=== PATIENT | male | born 1960 | race Caucasian/White ===

== ENCOUNTER 2017-03-22 20:44 | Inpatient (IN) | payer BC, OTHER ==
[2017-03-22] MEDS ORDERED: SODIUM CHLORIDE 0.9% 1,000 ML IV STA (21:46)
[2017-03-22] MEDS ORDERED: RX INFO: IV CONTRAST WAS GIVEN 1 EACH MISC MISCELLANE PRN (21:54)
[2017-03-22 22:25] LABS: Basophils # (A) 0.1 k/uL (0-0.2); Basophils % (A) 1 %; CH 31.5; CHCM 34.9; Eosinophils % (A) 7 %; HDW 2.53; HGB 16.1 gm/dL (13.0-17.5); Luc # (Auto) 0.25; Luc % (Auto) 2; Lymphocytes # (A) 2.7 k/uL (1.0-4.8); Lymphocytes % (A) 18 %; MCH 31.2 pg (25.0-35.0); MCHC 34.3 g/dL (31.0-37.0); MCV 90.9 fL (80.0-100.0); Mean Platelet Volume 7.3; Monocytes # (A) 0.8 k/uL (0-1.0); Monocytes % (A) 5 %; Neutrophils # (A) 10.7 k/uL (1.3-7.7); Neutrophils % (A) 69 %; RBC 5.17 m/uL (4.30-5.90); RDW 14.6 % (11.5-15.5); WBC 15.6 k/uL (3.8-10.6)
[2017-03-22 22:28] LABS: Appearance,Urine Clear (Clear); Bilirubin,Urine Negative (Negative); Glucose,Urine (UA) Negative (Negative); Ketones,Urine Negative (Negative); Leukocyte Esterase,Urine Negative (Negative); Nitrite,Urine Negative (Negative); Protein,Urine Negative (Negative); Specific Gravity,Urine 1.016 (1.001-1.035); UA Billing (MACRO vs. MICRO) CHEM; Urobilinogen,Urine <2.0 mg/dL (<2.0)
[2017-03-22 22:36] LABS: INR 1.1 (<1.2); Partial Thromboplastin Time 26.1 sec (22.0-30.0); Prothrombin Time 11.2 sec (9.0-12.0)
[2017-03-22 22:41] LABS: ALT 58 U/L (21-72); AST 29 U/L (17-59); Alkaline Phosphatase 74 U/L (38-126); Amylase <30 U/L (30-110); Anion Gap 12 mmol/L; Blood Urea Nitrogen 20 mg/dL (9-20); Calcium 9.2 mg/dL (8.4-10.2); Carbon Dioxide 22 mmol/L (22-30); Chloride 105 mmol/L (98-107); Glucose 99 mg/dL (74-99); Non-African American GFR(MDRD) >60 (>60 ml/min/1.73 sqM); Sodium 139 mmol/L (137-145); Total Bilirubin 0.6 mg/dL (0.2-1.3); Total Protein 6.6 g/dL (6.3-8.2)
[2017-03-22] MEDS ORDERED: ONDANSETRON 4 MG/2 ML VIAL IVP STA (22:52)
[2017-03-22] MEDS ORDERED: HYDROmorphone 1 MG/ML 1 ML SYRINGE IVP STA (22:52)
--- NOTE | 2017-03-22 23:11 | ED ---
Abdominal Pain HPI - General Source: patient, RN notes reviewed, old records reviewed Mode of arrival: ambulatory Limitations: no limitations <Claudia Frazier - Last Filed: 03/23/17 07:04> <Devaughn Arellano - Last Filed: 03/23/17 08:02> - General Chief Complaint: Abdominal Pain Stated Complaint: Abd Pain Time Seen by Provider: 03/22/17 21:39 - History of Present Illness Initial Comments: 56-year-old male presents to emergency department with cc of RLQ abdominal pain for the past 3 days. Patient reports it started with pain mainly over the umbilicus region. Patient started to radiate towards his right lower quadrant. He reports had a mild low-grade fever. Denies any nausea or vomiting. Initially thought he was constipated and took some stool softeners. Patient reports that he then developed diarrhea afterwards. He states that has not subsided but the pain is continue. Proceeded eat dinner this evening. He denies any vomiting. Denies any urinary symptoms. Reports he said history of umbilical hernia repair at [place]. Patient denies any recent chills, shortness of breath, chest pain, back pain, vomiting, numbness or tingling, dysuria or hematuria, constipation or diarrhea, headaches or visual changes, or any other current symptoms (Claudia Frazier) - Related Data Home Medications Medication Instructions Recorded Confirmed Ibuprofen [Motrin] 400 mg PO Q6HR PRN 08/15/15 03/22/17 Allergies Allergy/AdvReac Type Severity Reaction Status Date / Time No Known Allergies Allergy Verified 03/22/17 22:17 Review of Systems ROS Other: All systems not noted in ROS Statement are negative. <Claudia Frazier - Last Filed: 03/23/17 07:04> ROS Other: All systems not noted in ROS Statement are negative. <Devaughn Arellano - Last Filed: 03/23/17 08:02> ROS Statement: Those systems with pertinent positive or pertinent negative responses have been documented in the HPI. Past Medical History Past Medical History: No Reported History Additional Past Medical History / Comment(s): Neck pain History of Any Multi-Drug Resistant Organisms: None Reported Past Surgical History: Hernia Repair Past Psychological History: No Psychological Hx Reported Smoking Status: Former smoker Past Alcohol Use History: None Reported Past Drug Use History: None Reported <Claudia Frazier - Last Filed: 03/23/17 07:04> General Exam Limitations: no limitations General appearance: alert, in no apparent distress Head exam: Present: atraumatic, normocephalic, normal inspection Eye exam: Present: normal appearance, PERRL, EOMI. Absent: scleral icterus, conjunctival injection, periorbital swelling ENT exam: Present: normal exam, mucous membranes moist Neck exam: Present: normal inspection. Absent: tenderness, meningismus, lymphadenopathy Respiratory exam: Present: normal lung sounds bilaterally. Absent: respiratory distress, wheezes, rales, rhonchi, stridor Cardiovascular Exam: Present: regular rate, normal rhythm, normal heart sounds. Absent: systolic murmur, diastolic murmur, rubs, gallop, clicks GI/Abdominal exam: Present: soft, tenderness (RLQ tenderness), normal bowel sounds. Absent: distended, guarding, rebound, rigid Extremities exam: Present: normal inspection, full ROM, normal capillary refill. Absent: tenderness, pedal edema, joint swelling, calf tenderness Back exam: Present: normal inspection Neurological exam: Present: alert, oriented X3, CN II-XII intact Psychiatric exam: Present: normal affect, normal mood Skin exam: Present: warm, dry, intact, normal color. Absent: rash <Claudia Frazier - Last Filed: 03/23/17 07:04> <Devaughn Arellano - Last Filed: 03/23/17 08:02> - General Exam Comments Initial Comments: Ill-appearing 56-year-old male. No acute distress. (Claudia Frazier) Medical Decision Making - Lab Data Result diagrams: 03/22/17 22:14 03/22/17 22:14 - Radiology Data Radiology results: report reviewed <Claudia Frazier - Last Filed: 03/23/17 07:04> - Lab Data Result diagrams: 03/22/17 22:14 03/22/17 22:14 <Devaughn Arellano - Last Filed: 03/23/17 08:02> - Medical Decision Making 56-year-old male presents to emergency department with cc of RLQ abdominal pain for the past 3 days. Patient reports it started with pain mainly over the umbilicus region. Patient started to radiate towards his right lower quadrant. He reports had a mild low-grade fever. I was called by radiologist inform him that his CAT scan did show positive for appendicitis. Patient's lab work was reviewed and shows evidence of leukocytosis of 15.6. Discussed this case with Dr. Mancera who will discuss that with . PAtient has been started on Zosyn and given pain medication. Tylenol was given for mild fever. Patient agrees to admission. Probably surgery in AM. (Claudia Frazier) I saw this patient in conjunction with the physician family readiness support assistant. I performed independent history and physical exam. Agree with case management. (Devaughn Arellano) - Lab Data Lab Results 03/22/17 03/22/17 03/22/17 Range/Units 22:14 22:14 22:14 WBC 15.6 H (3.8-10.6) k/uL RBC 5.17 (4.30-5.90) m/uL Hgb 16.1 (13.0-17.5) gm/dL Hct 47.0 (39.0-53.0) % MCV 90.9 (80.0-100.0) fL MCH 31.2 (25.0-35.0) pg MCHC 34.3 (31.0-37.0) g/dL RDW 14.6 (11.5-15.5) % Plt Count 215 (150-450) k/uL Neutrophils % 69 % Lymphocytes % 18 % Monocytes % 5 % Eosinophils % 7 % Basophils % 1 % Neutrophils # 10.7 H (1.3-7.7) k/uL Lymphocytes # 2.7 (1.0-4.8) k/uL Monocytes # 0.8 (0-1.0) k/uL Eosinophils # 1.0 H (0-0.7) k/uL Basophils # 0.1 (0-0.2) k/uL PT (9.0-12.0) sec INR (<1.2) APTT (22.0-30.0) sec Sodium 139 (137-145) mmol/L Potassium 4.0 (3.5-5.1) mmol/L Chloride 105 (98-107) mmol/L Carbon Dioxide 22 (22-30) mmol/L Anion Gap 12 mmol/L BUN 20 (9-20) mg/dL Creatinine 0.80 (0.66-1.25) mg/dL Est GFR (MDRD) Af Amer >60 (>60 ml/min/1.73 sqM) Est GFR (MDRD) Non-Af >60 (>60 ml/min/1.73 sqM) Glucose 99 (74-99) mg/dL Plasma Lactic Acid Hernandez (0.7-2.0) mmol/L Calcium 9.2 (8.4-10.2) mg/dL Total Bilirubin 0.6 (0.2-1.3) mg/dL AST 29 (17-59) U/L ALT 58 (21-72) U/L Alkaline Phosphatase 74 (38-126) U/L Total Protein 6.6 (6.3-8.2) g/dL Albumin 4.0 (3.5-5.0) g/dL Amylase <30 L (30-110) U/L Lipase 100 (23-300) U/L Urine Color Yellow Urine Appearance Clear (Clear) Urine pH 5.0 (5.0-8.0) Ur Specific Harrold 1.016 (1.001-1.035) Urine Protein Negative (Negative) Urine Glucose (UA) Negative (Negative) Urine Ketones Negative (Negative) Urine Blood Negative (Negative) Urine Nitrite Negative (Negative) Urine Bilirubin Negative (Negative) Urine Urobilinogen <2.0 (<2.0) mg/dL Ur Leukocyte Esterase Negative (Negative) 03/22/17 03/22/17 Range/Units 22:14 22:14 WBC (3.8-10.6) k/uL RBC (4.30-5.90) m/uL Hgb (13.0-17.5) gm/dL Hct (39.0-53.0) % MCV (80.0-100.0) fL MCH (25.0-35.0) pg MCHC (31.0-37.0) g/dL RDW (11.5-15.5) % Plt Count (150-450) k/uL Neutrophils % % Lymphocytes % % Monocytes % % Eosinophils % % Basophils % % Neutrophils # (1.3-7.7) k/uL Lymphocytes # (1.0-4.8) k/uL Monocytes # (0-1.0) k/uL Eosinophils # (0-0.7) k/uL Basophils # (0-0.2) k/uL PT 11.2 (9.0-12.0) sec INR 1.1 (<1.2) APTT 26.1 (22.0-30.0) sec Sodium (137-145) mmol/L Potassium (3.5-5.1) mmol/L Chloride (98-107) mmol/L Carbon Dioxide (22-30) mmol/L Anion Gap mmol/L BUN (9-20) mg/dL Creatinine (0.66-1.25) mg/dL Est GFR (MDRD) Af Amer (>60 ml/min/1.73 sqM) Est GFR (MDRD) Non-Af (>60 ml/min/1.73 sqM) Glucose (74-99) mg/dL Plasma Lactic Acid Hernandez 0.8 (0.7-2.0) mmol/L Calcium (8.4-10.2) mg/dL Total Bilirubin (0.2-1.3) mg/dL AST (17-59) U/L ALT (21-72) U/L Alkaline Phosphatase (38-126) U/L Total Protein (6.3-8.2) g/dL Albumin (3.5-5.0) g/dL Amylase (30-110) U/L Lipase (23-300) U/L Urine Color Urine Appearance (Clear) Urine pH (5.0-8.0) Ur Specific Harrold (1.001-1.035) Urine Protein (Negative) Urine Glucose (UA) (Negative) Urine Ketones (Negative) Urine Blood (Negative) Urine Nitrite (Negative) Urine Bilirubin (Negative) Urine Urobilinogen (<2.0) mg/dL Ur Leukocyte Esterase (Negative) - Radiology Data CT abdomen and pelvis shows acute appendicitis. Mild steatohepatitis. ( Claudia Frazier) Disposition Time of Disposition: 23:27 <Claudia Frazier - Last Filed: 03/23/17 07:04> <Devaughn Arellano - Last Filed: 03/23/17 08:02> Clinical Impression: Appendicitis Disposition: ADMITTED IP TO THIS [facility] Condition: Stable
[2017-03-22] MEDS ORDERED: ACETAMINOPHEN TAB 500 MG TAB PO STA (23:22)
--- NOTE | 2017-03-22 23:22 | CT ---
Exam: CT ABDOMEN + PELVIS With Contrast History: Right lower quadrant pain. Comparison: None provided. Technique: Continuous axial images of the abdomen and pelvis are obtained after administration of intravenous contrast. Coronal and sagittal reformatting was provided. Findings: Limited by lack of simultaneous use of enteric contrast, especially at the cecum. The appendix appears dilated to approximately 1.2 cm in caliber proximally. It is fluid-filled. There is a moderate amount of stranding/fluid in the periappendiceal/right paracolic gutter region. The findings suggest appendicitis. There is borderline mesenteric lymphadenopathy, likely reactive. Borderline hepatic steatosis. Gallbladder is contracted. The pancreas, adrenal glands, kidneys and spleen show no substantial abnormality. No dilated loop of bowel. A short segment of small bowel herniates through the left inguinal canal. No acute aortic abnormality. No aggressive appearing osseous process. Impression: 1. Appendicitis. 2. Left inguinal small bowel hernia without small bowel dilatation. 3. Mild hepatic steatosis. DLP = 1551 mGycm One or more of the following dose reduction techniques were used: automated exposure control, adjustment of the mA and/or kV according to patient size, use of iterative reconstruction technique. [employer] 03/22/17 23:14 Call Doctor Regarding Appendicitis, called ELDER Frazier on 03/22 23:13 (-04:00)
[2017-03-22] MEDS ORDERED: ONDANSETRON 4 MG/2 ML VIAL IVP PRN (23:25)
[2017-03-22] MEDS ORDERED: LORazepam 2 MG/ML SYRINGE IV PRN (23:25)
[2017-03-22] MEDS ORDERED: NALOXONE 0.4 MG/ML 1 ML VIAL IV PRN ×2 (23:25→23:57)
[2017-03-22] MEDS ORDERED: PIPERACILLIN-TAZOBACTAM 3.375 GM in DEXTROSE/WATER 1 50ML.BAG IVPB STA (23:56)
[2017-03-22] MEDS: SODIUM CHLORIDE 0.9% 1,000 ML IV SCH (23:58)
[2017-03-23] MEDS: HYDROmorphone 1 MG/ML 1 ML SYRINGE IV PRN ×2 (04:23→14:15)
--- NOTE | 2017-03-23 07:21 | P.GSHP ---
History of Present Illness H&P Date: 03/23/17 Chief Complaint: Right lower quadrant abdominal pain The patient is a 56-year-old white male who developed the mid to lower abdominal pain about 3/2 days ago. He thought he was constipated stool softener. Had some loose bowel movements. The pain persisted and progressively worsened. No definite nausea or vomiting. He presented to the emergency room. Was found to have evidence of acute appendicitis by computed tomography scan would tenderness in the lower abdomen. No definite the peritoneal signs. Also had leukocytosis. No past history of similar pain. No urinary symptoms. Past history. Otherwise healthy. Chronic neck pain for which he takes Motrin regularly. ALLERGIES. None known. Social history. Quit smoking several years ago. Rarely drinks alcohol. Works in construction. Systems review. As above. No chest pain cough or respiratory problems or cardiac. No TRANSPORTATION ASSISTANT problems. Some neck pain. No urinary symptoms. On examination the patient is well-built well-nourished weighs about 85 kg. In no acute distress resting comfortably. Hydration is satisfactory temperature is normal vitals are normal. Head and neck are normal with full motion. Neck is supple. Heart regular rhythm. Lungs are clear. Abdomen soft with the moderate tenderness in the right lower quadrant with some voluntary guarding but no rebound or rigidity. Localized to the right lower quadrant. Has a scar in the right groin from previous right inguinal hernia repair. Has a left inguinal hernia easily reducible. Extremities normal. TRANSPORTATION ASSISTANT intact. Computed tomography scan consistent with acute appendicitis. No free air. Left inguinal hernia with the some small bowel nonobstructed. WBCs elevated to 15,600. Impression. Acute appendicitis. Left inguinal hernia. Recommendation. Recommend laparoscopic appendectomy possible open. In the meantime continue with IV antibiotics analgesia. I explained to proceed to him and potential complication particular bleeding infection surrounding injury pain etc. increase her risk for open surgery in view of the more than 3 day history of his symptoms. He understands and agrees to proceed. Past Medical History Past Medical History: No Reported History Additional Past Medical History / Comment(s): Neck pain History of Any Multi-Drug Resistant Organisms: None Reported Past Surgical History: Hernia Repair Past Anesthesia/Blood Transfusion Reactions: No Reported Reaction Past Psychological History: No Psychological Hx Reported Smoking Status: Former smoker Past Alcohol Use History: None Reported Past Drug Use History: None Reported Medications and Allergies Home Medications Medication Instructions Recorded Confirmed Type Ibuprofen [Motrin] 400 mg PO Q6HR PRN 08/15/15 03/22/17 History Allergies Allergy/AdvReac Type Severity Reaction Status Date / Time No Known Allergies Allergy Verified 03/22/17 22:17 Surgical - Exam Vital Signs Temp Pulse Resp BP Pulse Ox 99.7 F H 75 18 125/78 95 03/22/17 20:59 03/22/17 20:59 03/22/17 20:59 03/22/17 20:59 03/22/17 20:59 Results - Labs 03/22/17 22:14 03/22/17 22:14 Abnormal Lab Results - Last 24 Hours (Table) 03/22/17 03/22/17 Range/Units 22:14 22:14 WBC 15.6 H (3.8-10.6) k/uL Neutrophils # 10.7 H (1.3-7.7) k/uL Eosinophils # 1.0 H (0-0.7) k/uL Amylase <30 L (30-110) U/L Diabetes panel 03/22/17 Range/Units 22:14 Sodium 139 (137-145) mmol/L Potassium 4.0 (3.5-5.1) mmol/L Chloride 105 (98-107) mmol/L Carbon Dioxide 22 (22-30) mmol/L BUN 20 (9-20) mg/dL Creatinine 0.80 (0.66-1.25) mg/dL Glucose 99 (74-99) mg/dL Calcium 9.2 (8.4-10.2) mg/dL AST 29 (17-59) U/L ALT 58 (21-72) U/L Alkaline Phosphatase 74 (38-126) U/L Total Protein 6.6 (6.3-8.2) g/dL Albumin 4.0 (3.5-5.0) g/dL Calcium panel 03/22/17 Range/Units 22:14 Calcium 9.2 (8.4-10.2) mg/dL Albumin 4.0 (3.5-5.0) g/dL Pituitary panel 03/22/17 Range/Units 22:14 Sodium 139 (137-145) mmol/L Potassium 4.0 (3.5-5.1) mmol/L Chloride 105 (98-107) mmol/L Carbon Dioxide 22 (22-30) mmol/L BUN 20 (9-20) mg/dL Creatinine 0.80 (0.66-1.25) mg/dL Glucose 99 (74-99) mg/dL Calcium 9.2 (8.4-10.2) mg/dL Adrenal panel 03/22/17 Range/Units 22:14 Sodium 139 (137-145) mmol/L Potassium 4.0 (3.5-5.1) mmol/L Chloride 105 (98-107) mmol/L Carbon Dioxide 22 (22-30) mmol/L BUN 20 (9-20) mg/dL Creatinine 0.80 (0.66-1.25) mg/dL Glucose 99 (74-99) mg/dL Calcium 9.2 (8.4-10.2) mg/dL Total Bilirubin 0.6 (0.2-1.3) mg/dL AST 29 (17-59) U/L ALT 58 (21-72) U/L Alkaline Phosphatase 74 (38-126) U/L Total Protein 6.6 (6.3-8.2) g/dL Albumin 4.0 (3.5-5.0) g/dL
[2017-03-23] MEDS: HEPARIN SODIUM,PORCINE 5,000 UNIT/ML 1 ML VIAL SQ SCH ×2 (08:15→20:06)
[2017-03-23] MEDS: SODIUM CHLORIDE 0.9% 1,000 ML IV SCH ×3 (08:15→23:20)
[2017-03-23 08:39] LABS: Basophils # (A) 0.1 k/uL (0-0.2); Basophils % (A) 1 %; CH 31.5; CHCM 33.6; Eosinophils # (A) 0.7 k/uL (0-0.7); Eosinophils % (A) 5 %; HCT 45.2 % (39.0-53.0); HDW 2.52; HGB 14.9 gm/dL (13.0-17.5); Luc # (Auto) 0.18; Luc % (Auto) 1; Lymphocytes # (A) 1.5 k/uL (1.0-4.8); Lymphocytes % (A) 11 %; MCH 31.1 pg (25.0-35.0); MCHC 33.1 g/dL (31.0-37.0); MCV 94.2 fL (80.0-100.0); Mean Platelet Volume 7.3; Monocytes # (A) 0.7 k/uL (0-1.0); Monocytes % (A) 5 %; Neutrophils # (A) 11.4 k/uL (1.3-7.7); Neutrophils % (A) 79 %; RDW 14.7 % (11.5-15.5); WBC 14.5 k/uL (3.8-10.6); WBC (Perox) 14.19
[2017-03-23] MEDS ORDERED: IV FLUID CONTINUATION 800 ML IV ONE (10:37)
[2017-03-23] MEDS ORDERED: metroNIDAZOLE-NS PMX 500 MG in SALINE 1 100ML.BAG IVPB STA (11:47)
[2017-03-23] MEDS ORDERED: LIDOCAINE 1% INJ 10MG/ML (20 ML MDV) ONE (11:50)
[2017-03-23] MEDS ORDERED: SUCCINYLCHOLINE CHLORIDE 100 MG/5 ML SYR IV ONE (11:50)
[2017-03-23] MEDS ORDERED: PROPOFOL 10 MG/ML 20 ML VIAL IV ONE (11:50)
[2017-03-23] MEDS ORDERED: NEOSTIGMINE 1 MG/ML 10 ML VIAL ONE (11:50)
[2017-03-23] MEDS ORDERED: HYDROmorphone (PF) 1 MG/ML ONE (11:50)
[2017-03-23] MEDS ORDERED: MIDAZOLAM 2 MG/2 ML VIAL ONE (11:50)
[2017-03-23] MEDS ORDERED: GLYCOPYRROLATE 0.2 MG/ML 2 ML VIAL ONE (11:50)
[2017-03-23] MEDS ORDERED: ROCURONIUM BROMIDE 10 MG/ML 10 ML VIAL IV ONE (11:50)
[2017-03-23] MEDS ORDERED: fentaNYL (PF) 50 MCG/ML 2 ML AMP ONE (11:50)
[2017-03-23] MEDS ORDERED: KETOROLAC 30 MG/ML 1 ML VIAL ONE (11:50)
[2017-03-23] MEDS ORDERED: SODIUM CHLORIDE 0.9% 50 ML with ceFAZolin 2,000 MG IV ONE ×2 (11:58)
[2017-03-23] MEDS ORDERED: BUPIVACAINE (PF) 0.5% 30 ML VIAL SQ ONE ×2 (12:08)
[2017-03-23] MEDS ORDERED: LACTATED RINGERS 1,000 ML IV ONE (12:51)
--- NOTE | 2017-03-23 13:06 | P.OP ---
Date of Procedure: 03/23/17 Preoperative Diagnosis: Severe acute appendicitis Postoperative Diagnosis: Severe acute appendicitis with early gangrenous changes. Procedure(s) Performed: Laparoscopic appendectomy Implants: Anesthesia: RENAE Surgeon: Zeeshan Hatfield Estimated Blood Loss (ml): 20 Pathology: other (Appendix) Condition: stable Disposition: PACU Indications for Procedure: Over 3 days history of lower abdominal pain localizing to the right lower quadrant with CT evidence of acute acute appendicitis and leukocytosis and marked tenderness in the right lower quadrant. Laparoscopic appendectomy possible open was recommended and informed consent was obtained the procedure have been explained to the patient including potential complication particular bleeding infection surrounding injury pain at increased risk for complications in view of the extended duration of his symptoms. Patient understood and agree to proceed. Operative Findings: Severe acute appendicitis with the early gangrenous changes. Description of Procedure: After induction of general endotracheal anesthesia the abdominal wall was prepped with Betadine and draped. Local anesthetic Marcaine and the 0.5% was infiltrated into the skin and subcutaneous tissue just below the umbilicus where a small transverse incision was made. The fascia was exposed infiltrated with the Marcaine and retracted and a Veress needle inserted under direct vision with a satisfactory saline drop test. The peritoneal cavity was then inflated with carbon dioxide to pressure approximately 15 mmHg. The needle was replaced with a 12 mm trocar and the laparoscope inserted. Of the 5 mm trocar was placed suprapubically and another 5 mm trocar in the left lower quadrant under direct vision. Visual exploration confirmed acute appendicitis with the severe inflammatory changes fibrinous exudate with some seropurulent the fluid in the pelvis. The appendix was adherent to the anterior abdominal wall and had to be carefully dissected away from this as well as from the sigmoid colon. There was early gangrenous changes in the midportion of the appendix. They appeared to be impending perforation. The appendix was gently grasped and retracted window created in the mesoappendix adjacent to the cecum and the appendix was then stapled and divided with the Endo JIM stapler. The mesoappendix was then similarly stapled and divided with 2 passes of the Endo JIM stapler. The appendix were then removed in an Endo Catch bag. It the left into [address] it in the bag. Both removed intact. The pelvis and right gutter were thoroughly irrigated hemostasis was good and the field was dry. The fascial incision at the umbilicus was closed with the Estrada Torres needle with the 0 Vicryl. Skin incisions were then all closed after all trochars were removed under direct vision and CO2 evacuated with interrupted 0 Vicryl sutures subcuticular and Steri-Strips. Dressings were applied all counts were correct blood loss was about 20 MLS.
[2017-03-23] MEDS: metroNIDAZOLE-NS PMX 500 MG in SALINE 1 100ML.BAG IVPB SCH ×2 (14:15→23:16)
[2017-03-23] MEDS: PIPERACILLIN-TAZOBACTAM 3.375 GM in DEXTROSE/WATER 1 50ML.BAG IVPB SCH (15:49)
[2017-03-23] MEDS: ACETAMINOPHEN TAB 325 MG TAB PO PRN (20:05)
[2017-03-24] MEDS: PIPERACILLIN-TAZOBACTAM 3.375 GM in DEXTROSE/WATER 1 50ML.BAG IVPB SCH ×3 (00:36→16:50)
[2017-03-24] MEDS: HYDROmorphone 1 MG/ML 1 ML SYRINGE IV PRN (00:41)
--- NOTE | 2017-03-24 08:17 | P.PN ---
Progress Note - Text The patient had the laparoscopic appendectomy for severe gangrenous appendicitis yesterday. Coming along fairly well. No nausea or vomiting. Appetite is diminished as expected. He is tolerating clear liquids. On examination has a T-max of 99 3. Awake alert in no distress. Abdomen is mildly distended stool a fair amount of tenderness in the right lower quadrant as expected. Trocar sites are fine. Impression stable postop of laparoscopic appendectomy for severe acute the early gangrenous appendicitis. Meggan recommendation advance his diet the. Encourage more ambulation. Continue IV antibiotics for another day or so and probably discharge tomorrow.
[2017-03-24] MEDS: HEPARIN SODIUM,PORCINE 5,000 UNIT/ML 1 ML VIAL SQ SCH ×2 (08:47→20:09)
[2017-03-24] MEDS: HYDROcodone/APAP 5-325MG 1 EACH TAB PO PRN ×2 (08:49→13:29)
[2017-03-24] MEDS: metroNIDAZOLE-NS PMX 500 MG in SALINE 1 100ML.BAG IVPB SCH ×3 (09:01→23:39)
[2017-03-24] MEDS: SODIUM CHLORIDE 0.9% 1,000 ML IV SCH (10:21)
--- NOTE | 2017-03-24 14:25 | P.CONS ---
History of Present Illness - Reason for Consult Consult date: 03/24/17 management of low oxygen - History of Present Illness this is a is a 56-year-old white male who developed the mid to lower abdominal 3 days ago. He thought he was constipated and tried stool softeners which illicited some loose bowel movements. The pain persisted and progressively worsened. No definite nausea or vomiting. He presented to the emergency room and Was found to have evidence of acute appendicitis by CT. Dr Coelho had seen and admitted him. After 1 day, performed LAp Appy. Gangrenoous appendicitis was found. Since his admit, his pulse Ox has been low at night. He has h/o COPD, and was worked up with a sleep stuy, but it was negative for LACI. he is confortable with controlled pain, passing flatus, tolerating regualr diet. Review of Systems All systems: negative Past Medical History Past Medical History: No Reported History Additional Past Medical History / Comment(s): Neck pain History of Any Multi-Drug Resistant Organisms: None Reported Past Surgical History: Hernia Repair Past Anesthesia/Blood Transfusion Reactions: No Reported Reaction Past Psychological History: No Psychological Hx Reported, Anxiety Smoking Status: Former smoker Past Alcohol Use History: None Reported Past Drug Use History: None Reported Medications and Allergies Home Medications Medication Instructions Recorded Confirmed Type Ibuprofen [Motrin] 400 mg PO Q6HR PRN 08/15/15 03/22/17 History Allergies Allergy/AdvReac Type Severity Reaction Status Date / Time No Known Allergies Allergy Verified 03/22/17 22:17 Physical Exam Vitals: Vital Signs Temp Pulse Resp BP Pulse Ox 03/24/17 07:34 97.1 F L 68 22 111/70 94 L 03/23/17 23:00 99.4 F 83 18 114/68 91 L 03/23/17 16:00 75 20 03/23/17 14:40 100/58 92 L 03/23/17 14:35 99.1 F 75 20 91/47 86 L Intake and Output 03/23/17 03/24/17 03/24/17 22:59 06:59 14:59 Intake Total 0 400 Balance 0 400 Intake: Oral 0 400 Other: Voiding Method Toilet Toilet # Voids 2 2 Weight 85 kg - Constitutional General appearance: average body habitus - EENT Eyes: EOMI, PERRLA ENT: normal oropharynx - Neck Neck: no lymphadenopathy, no thyromegaly - Respiratory Respiratory: bilateral: diminished (minimally) - Cardiovascular Rhythm: regular Heart sounds: normal: S1, S2 Abnormal Heart Sounds: no systolic murmur - Gastrointestinal General gastrointestinal: normal bowel sounds, no organomegaly, no splenomegaly Localized gastrointestinal: tender: RLQ (minimal palpation due to surgery) - Musculoskeletal Musculoskeletal: gait normal - Psychiatric Psychiatric: A&O x's 3 Results CBC & Chem 7: 03/23/17 08:21 03/22/17 22:14 Assessment and Plan Plan: appendicitis s/p LAp Appy POD 1: with the evidence of gangrene, he is continuie on abx Hypoxia: continue O2 as needed, increase ambulation, obtain CXR, h/o tobaccoism: as above I will review his xray and Dr Flaherty will reevaluate in the next 24 hrs due to my upcoming vacation. he can f/u in office in 2-3 weeks if he is discharged as planned
[2017-03-24] MEDS: ACETAMINOPHEN TAB 325 MG TAB PO PRN (15:30)
[2017-03-24 15:41] VITALS: RESP 18
[2017-03-25] MEDS: PIPERACILLIN-TAZOBACTAM 3.375 GM in DEXTROSE/WATER 1 50ML.BAG IVPB SCH ×2 (01:01→07:28)
[2017-03-25] MEDS: HYDROmorphone 1 MG/ML 1 ML SYRINGE IV PRN ×2 (01:01→07:28)
[2017-03-25] MEDS: HEPARIN SODIUM,PORCINE 5,000 UNIT/ML 1 ML VIAL SQ SCH (07:28)
[2017-03-25 07:31] VITALS: BP 137/80; PULSE 81; TEMP 98.3
[2017-03-25 07:57] LABS: Basophils # (A) 0.1 k/uL (0-0.2); Basophils % (A) 1 %; CHCM 33.7; Eosinophils # (A) 0.6 k/uL (0-0.7); Eosinophils % (A) 6 %; HCT 42.3 % (39.0-53.0); HDW 2.66; HGB 14.1 gm/dL (13.0-17.5); Luc # (Auto) 0.15; Luc % (Auto) 1; Lymphocytes # (A) 1.5 k/uL (1.0-4.8); Lymphocytes % (A) 14 %; MCH 30.9 pg (25.0-35.0); MCHC 33.4 g/dL (31.0-37.0); MCV 92.3 fL (80.0-100.0); Mean Platelet Volume 7.6; Monocytes # (A) 0.4 k/uL (0-1.0); Monocytes % (A) 4 %; Neutrophils % (A) 75 %; RBC 4.58 m/uL (4.30-5.90); RDW 14.1 % (11.5-15.5); WBC 10.7 k/uL (3.8-10.6); WBC (Perox) 11.44
[2017-03-25] MEDS ORDERED: metroNIDAZOLE 500 MG TAB PO SCH (08:00)
[2017-03-25 08:12] LABS: Anion Gap 9 mmol/L; Blood Urea Nitrogen 10 mg/dL (9-20); Calcium 8.4 mg/dL (8.4-10.2); Carbon Dioxide 25 mmol/L (22-30); Chloride 106 mmol/L (98-107); Glucose 90 mg/dL (74-99); Non-African American GFR(MDRD) >60 (>60 ml/min/1.73 sqM); Potassium 3.7 mmol/L (3.5-5.1); Sodium 140 mmol/L (137-145)
--- NOTE | 2017-03-25 08:27 | P.PN ---
Progress Note - Text The patient is due to post laparoscopic appendectomy for acute the suppurative appendicitis with the early gangrenous changes in the midportion. Tolerating liquids. The doesn't have too much of an appetite as expected. Passing some flatus but no bowel movement. On examination his temperature is normal. Vitals are good. Abdomen is soft with minimal distention with usual postoperative tenderness in the right lower quadrant no guarding or rebound. Trocar sites fine. Impression. Stable postoperative course. Recommendation patient can be discharged home on by mouth antibiotics and analgesia. Encouraged to drink lots of fluids. Colace 1 daily. Given a prescription for local 5/325 one every 4-6 hours when necessary for pain and Augmentin 875 mg 1 by mouth twice a day. No heavy lifting or straining for a week. May shower. Return appointment to the office in about a week. Disposition home.
--- NOTE | 2017-03-25 08:58 | XR ---
EXAMINATION TYPE: XR chest 2V DATE OF EXAM: 03/25/2017 COMPARISON: 08/15/2015 TECHNIQUE: PA and lateral views submitted. HISTORY: Hypoxia FINDINGS: Subsegmental changes at both lung bases. No overt failure or pneumothorax. Biapical pleural thickenin g arthropathy of the shoulders. Hypertrophic and degenerative change of the spine. IMPRESSION: 1. Basilar linear changes are most typical of atelectasis correlate clinically to exclude early infil trate..
== END 2017-03-25 11:43 | disposition home or self-care (01) | DRG 343 ==
LOC: EC 20:44 → 4MS4W 03-23 00:26
PROVIDERS: ADMIT Surgery; ATTEND Surgery
PROC: 0DTJ4ZZ Resection of Appendix, Percutaneous Endoscopic Approach (ICD-10-PCS; principal; 2017-03-23 07:30)
DX: K35.80 Unspecified acute appendicitis (principal); J44.9 Chronic obstructive pulmonary disease, unspecified; G89.29 Other chronic pain; K40.90 Unilateral inguinal hernia, without obstruction or gangrene, not specified as recurrent; Z79.1 Long term (current) use of non-steroidal anti-inflammatories (NSAID); Z87.891 Personal history of nicotine dependence
CPT/HCPCS: 36415; 71020; 74177; 80048; 80053; 81003; 82150; 83605; 83690; 85025; 85610; 85730; 88304

== ENCOUNTER 2021-08-16 17:28 | Emergency (ER) | payer OTHER ==
[2021-08-16] MEDS ORDERED: IBUPROFEN 400 MG TAB PO STA (19:53)
[2021-08-16] MEDS ORDERED: ACETAMINOPHEN TAB 325 MG TAB PO STA (19:53)
--- NOTE | 2021-08-16 20:03 | ED ---
General Adult HPI - General Chief complaint: Upper Respiratory Infection Stated complaint: Cough, fever Time Seen by Provider: 08/16/21 19:34 Source: patient, RN notes reviewed Mode of arrival: ambulatory Limitations: no limitations - History of Present Illness Initial comments: 61-year-old male presents to the emergency Department with complaints of fever and cough since Wednesday. States he has been attempting to treat his symptoms with OTC medications. Also complains of decreased appetite. Reports concern for possible Covid. States he is not vaccinated. Patient denies headache, chest pain, difficulty breathing, abdominal pain, nausea, vomiting, diarrhea, or dysuria. - Related Data Home Medications Medication Instructions Recorded Confirmed Ibuprofen [Motrin] 400 mg PO Q6HR PRN 08/15/15 03/22/17 Previous Rx's Medication Instructions Recorded Amoxic-Pot Clav 875-125Mg 1 tab PO Q12HR #10 tablet 03/25/17 [Augmentin 875-125] HYDROcodone/APAP 5-325MG [[place] 1 tab PO Q4HR PRN #25 tab 03/25/17 5-325] Allergies Allergy/AdvReac Type Severity Reaction Status Date / Time No Known Allergies Allergy Verified 03/22/17 22:17 Review of Systems ROS Statement: Those systems with pertinent positive or pertinent negative responses have been documented in the HPI. ROS Other: All systems not noted in ROS Statement are negative. Past Medical History Past Medical History: No Reported History Additional Past Medical History / Comment(s): Neck pain History of Any Multi-Drug Resistant Organisms: None Reported Past Surgical History: Hernia Repair Past Anesthesia/Blood Transfusion Reactions: No Reported Reaction Past Psychological History: No Psychological Hx Reported, Anxiety Smoking Status: Never smoker Past Alcohol Use History: None Reported Past Drug Use History: None Reported General Exam Limitations: no limitations General appearance: alert, in no apparent distress, other (Developed, well- nourished male in no acute distress. Initial temperature 100.1, pulse 79, respirations 20, blood pressure 163/89, pulse ox 92% on room air.) ENT exam: Present: normal exam, normal oropharynx, mucous membranes moist Respiratory exam: Present: normal lung sounds bilaterally. Absent: respiratory distress, wheezes, rales, rhonchi, stridor Cardiovascular Exam: Present: regular rate, normal rhythm, normal heart sounds. Absent: systolic murmur, diastolic murmur, rubs, gallop, clicks GI/Abdominal exam: Present: soft, normal bowel sounds. Absent: distended, tenderness, guarding, rebound, rigid Neurological exam: Present: alert, oriented X3, CN II-XII intact Psychiatric exam: Present: normal affect, normal mood Skin exam: Present: warm, dry, intact, normal color. Absent: rash Course Vital Signs 08/16/21 08/16/21 08/16/21 17:55 19:32 20:52 Temperature 100.1 F H 100.9 F H 100.7 F H Pulse Rate 79 80 78 Respiratory 20 18 16 Rate Blood Pressure 163/89 128/77 O2 Sat by Pulse 92 L 95 92 L Oximetry 08/16/21 21:36 Temperature 98.6 F Pulse Rate 72 Respiratory 16 Rate Blood Pressure 120/76 O2 Sat by Pulse 92 L Oximetry - Reevaluation(s) Reevaluation #1: 08/16/21 20:02 Discussed option of monoclonal antibody infusion with patient. Reviewed risks and benefits. Patient is agreeable and wishes to proceed. Medical Decision Making - Medical Decision Making This is a 61-year-old male with no significant past medical history who presents to the emergency department for evaluation. Upon exam, patient is well- appearing with no increased work of breathing. He does have a persistent dry cough. Patient is tolerating oral intake without difficulty. Patient is febrile, though not tachypneic nor tachycardic. His SpO2 is 92-95% on room air. Patient did test positive for COVID-19. He is unvaccinated. Discussed the option of a monoclonal antibody infusion, he is agreeable to this. Infusion was tolerated without any adverse side effects. Patient will be discharged home to follow up with his primary care provider for a recheck. Instructed to alternate Tylenol and Motrin for fever control. Return parameters were discussed in detail. Patient verbalizes understanding and agrees with this plan. This patient's care was discussed with my attending Dr. Arellano. - Lab Data Lab Results 08/16/21 Range/Units 17:57 Coronavirus (PCR) Detected A (Not Detectd) Disposition Clinical Impression: COVID-19, Fever Disposition: HOME SELF-CARE Condition: Stable Instructions (If sedation given, give patient instructions): Coronavirus Disease 2019 (COVID-19), Fever in Adults (ED) Additional Instructions: Alternate Tylenol and Motrin for fever control. Rest and increase fluids. Continue your quarantine. Call your primary care provider for a recheck. Return to the emergency department with any new, worsening, or concerning symptoms. Is patient prescribed a controlled substance at d/c from ED?: No Referrals: None,Stated [Primary Care Provider] - 1-2 days Time of Disposition: 21:50
[2021-08-16] MEDS ORDERED: BAMLANIVIMAB (EUA) 700 MG, ETESEVIMAB (EUA) 1,400 MG in SODIUM CHLORIDE 0.9% 50 ML IVPB ONE (20:15)
[2021-08-16] MEDS ORDERED: SODIUM CHLORIDE 0.9% 50 ML IVPB ONE (20:15)
[2021-08-16 20:54] VITALS: RESP 16
[2021-08-16 21:37] VITALS: BP 120/76; PULSE 72; TEMP 98.6
== END 2021-08-16 21:50 | disposition home or self-care (01) ==
LOC: EC 17:28
DX: U07.1 COVID-19 (principal); F41.9 Anxiety disorder, unspecified
CPT/HCPCS: 99283; 96360; 87635; J3490

== ENCOUNTER 2021-08-24 09:11 | Emergency (ER) | payer OTHER ==
[2021-08-24 09:24] VITALS: BP 165/93; PULSE 82; RESP 18; TEMP 97
--- NOTE | 2021-08-24 09:53 | XR ---
EXAMINATION TYPE: XR chest 2V DATE OF EXAM: 08/24/2021 COMPARISON: 03/25/2017 HISTORY: Left rib pain TECHNIQUE: Frontal and lateral views of the chest are obtained. FINDINGS: There has been interval development of multiple small focal areas of partially consolidati ve opacity consistent with acute cardiopulmonary process. There is no pneumothorax or large pleural e ffusion. The cardiac silhouette is enlarged but the pulmonary vasculature does not appear congested. The osseo us structures are intact. IMPRESSION: Interval development of acute cardiopulmonary disease as described above.
[2021-08-24] MEDS ORDERED: ACET/COD 300 MG/30 MG STARTER PACK 6 TAB BTL PO STA (10:07)
[2021-08-24] MEDS ORDERED: CYCLOBENZAPRINE 10MG STARTER 3 TAB BTL PO STA (10:07)
--- NOTE | 2021-08-24 10:07 | ED ---
General Adult HPI - General Chief complaint: Back Pain/Injury Stated complaint: Rib Pain Time Seen by Provider: 08/24/21 09:26 Source: patient, RN notes reviewed Mode of arrival: ambulatory Limitations: no limitations - History of Present Illness Initial comments: 61-year-old male presents emergency from chief complaint of left-sided rib pain. Patient states that he has COVID-19 states he's been coughing really hard states he felt a pop in his back states is worse with movement, pain along his ribs. He does not feel any increasing shortness of breath. Recent fever states fevers have resolved. Nonproductive cough no anterior chest pain no palpitations. - Related Data Home Medications Medication Instructions Recorded Confirmed Ibuprofen [Motrin] 400 mg PO Q6HR PRN 08/15/15 03/22/17 Previous Rx's Medication Instructions Recorded Amoxic-Pot Clav 875-125Mg 1 tab PO Q12HR #10 tablet 03/25/17 [Augmentin 875-125] HYDROcodone/APAP 5-325MG [[place] 1 tab PO Q4HR PRN #25 tab 03/25/17 5-325] Cyclobenzaprine [Flexeril] 10 mg PO TID PRN #15 tab 08/24/21 Ibuprofen [Motrin] 600 mg PO Q8HR PRN #30 tab 08/24/21 Allergies Allergy/AdvReac Type Severity Reaction Status Date / Time No Known Allergies Allergy Verified 08/24/21 09:24 Review of Systems ROS Statement: Those systems with pertinent positive or pertinent negative responses have been documented in the HPI. ROS Other: All systems not noted in ROS Statement are negative. Past Medical History Past Medical History: No Reported History Additional Past Medical History / Comment(s): Neck pain, covid History of Any Multi-Drug Resistant Organisms: None Reported Past Surgical History: Hernia Repair Past Anesthesia/Blood Transfusion Reactions: No Reported Reaction Past Psychological History: No Psychological Hx Reported, Anxiety Smoking Status: Never smoker Past Alcohol Use History: None Reported Past Drug Use History: None Reported General Exam Limitations: no limitations General appearance: alert, in no apparent distress Head exam: Present: atraumatic, normocephalic, normal inspection Eye exam: Present: normal appearance, PERRL, EOMI. Absent: scleral icterus, conjunctival injection, periorbital swelling Respiratory exam: Present: normal lung sounds bilaterally, chest wall tenderness (Moderate rib tenderness on the left). Absent: respiratory distress, wheezes, rales, rhonchi, stridor Course Vital Signs 08/24/21 09:22 Temperature 97.0 F L Pulse Rate 82 Respiratory 18 Rate Blood Pressure 165/93 O2 Sat by Pulse 94 L Oximetry Medical Decision Making - Medical Decision Making X-rays is consistent with COVID-19 pneumonia, pain is consistent with muscular strain, costochondritis Patient will be discharged in stable condition with pain control return parameters were discussed. Disposition Clinical Impression: Chest wall muscle strain, Costochondritis, acute Disposition: HOME SELF-CARE Condition: Stable Instructions (If sedation given, give patient instructions): Muscle Strain (ED) Additional Instructions: Please return to the Emergency Department if symptoms worsen or any other concerns. Prescriptions: Cyclobenzaprine [Flexeril] 10 mg PO TID PRN #15 tab PRN Reason: Muscle Spasm Ibuprofen [Motrin] 600 mg PO Q8HR PRN #30 tab PRN Reason: Pain Is patient prescribed a controlled substance at d/c from ED?: No Referrals: Jose C Flaherty Jr, [Primary Care Provider] - 1-2 days Time of Disposition: 10:07
== END 2021-08-24 10:30 | disposition home or self-care (01) ==
LOC: EC 09:11
DX: S29.011A Strain of muscle and tendon of front wall of thorax, initial encounter (principal); M94.0 Chondrocostal junction syndrome [Tietze]; F41.9 Anxiety disorder, unspecified; X58.XXXA Exposure to other specified factors, initial encounter
CPT/HCPCS: 71046; 99283

== ENCOUNTER 2022-11-21 10:49 | Emergency (ER) | payer BC ==
--- NOTE | 2022-11-21 11:56 | XR ---
EXAMINATION TYPE: XR chest 2V DATE OF EXAM: 11/21/2022 COMPARISON: 08/24/2021 HISTORY: 62-year-old male high blood pressure, history of COVID 1 year ago. TECHNIQUE: PA and lateral views FINDINGS: Heart upper limits of normal in size. Aorta within normal limits. Mild interstitial density remains l ow with a interval resolution of previous peripheral infiltrates. No pleural effusion. IMPRESSION: Suspect some mild underlying post COVID interstitial scarring. Heart upper limits of normal in size. No definite acute process otherwise seen.
--- NOTE | 2022-11-21 12:18 | ED ---
General Adult HPI - General Chief complaint: Recheck/Abnormal Lab/Rx Stated complaint: High Blood Pressure Time Seen by Provider: 11/21/22 11:11 Source: patient Mode of arrival: ambulatory Limitations: no limitations - History of Present Illness Initial comments: Patient is a 62-year-old male who presents to the emergency department for high blood pressure. Patient has history of hypertension, takes Nebivolol 5 mg daily. Patient states his blood pressure is usually in the 130s/80s. Over the past 2 weeks it has been in the 150s/70-80s. Patient denies headache, visual symptoms, chest pain, shortness of breath. Patient had an appointment with his primary care provider planned this week however states he accidentally missed his appointment due to the time change. Patient does have the next appointment rescheduled for December 03. - Related Data Home Medications Medication Instructions Recorded Confirmed Nebivolol [Bystolic] 5 mg PO DAILY 11/21/22 11/21/22 Nebivolol [Bystolic] 5 mg PO HS PRN 11/21/22 11/21/22 Allergies Allergy/AdvReac Type Severity Reaction Status Date / Time No Known Allergies Allergy Verified 11/21/22 12:07 Review of Systems ROS Statement: Those systems with pertinent positive or pertinent negative responses have been documented in the HPI. ROS Other: All systems not noted in ROS Statement are negative. Past Medical History Past Medical History: Hypertension Additional Past Medical History / Comment(s): Neck pain, covid History of Any Multi-Drug Resistant Organisms: None Reported Past Surgical History: Hernia Repair Past Anesthesia/Blood Transfusion Reactions: No Reported Reaction Past Psychological History: No Psychological Hx Reported, Anxiety Smoking Status: Never smoker Past Alcohol Use History: None Reported Past Drug Use History: None Reported General Exam Limitations: no limitations General appearance: alert, in no apparent distress Head exam: Present: atraumatic, normocephalic, normal inspection Respiratory exam: Present: normal lung sounds bilaterally. Absent: respiratory distress, wheezes, rales, rhonchi, stridor Cardiovascular Exam: Present: normal rhythm, bradycardia. Absent: regular rate GI/Abdominal exam: Present: soft, normal bowel sounds. Absent: distended, tenderness, guarding, rebound, rigid Neurological exam: Present: alert, oriented X3, CN II-XII intact Psychiatric exam: Present: normal affect, normal mood Skin exam: Present: warm, dry, intact, normal color. Absent: rash Course Vital Signs 11/21/22 11/21/22 10:51 13:15 Temperature 98.1 F 98.6 F Pulse Rate 59 L 56 L Respiratory 20 16 Rate Blood Pressure 150/73 138/81 O2 Sat by Pulse 99 99 Oximetry Medical Decision Making - Medical Decision Making EKG taken at 11:52, interpreted by me Sinus bradycardia, ST depression in lead 3, no previous for comparison Ventricular rate 54, [place] interval 156, QRS duration 98, QTC 363 Was pt. sent in by a medical professional or institution (ELDER Alexandra, ROBOTICS TECHNOLOGIST, urgent care, hospital, or [facility]...) When possible be specific @ -No Did you speak to anyone other than the patient for history (EMS, parent, family, police, friend...)? What history was obtained from this source @ -No Did you review nursing and triage notes (agree or disagree)? Why? @ -I reviewed and agree with nursing and triage notes Were old charts reviewed (outside hosp., previous admission, EMS record, old EKG, old radiological studies, urgent care reports/EKG's, [facility] records)? Report findings @ -No old charts were reviewed Differential Diagnosis (chest pain, altered mental status, abdominal pain women, abdominal pain men, vaginal bleeding, weakness, fever, dyspnea, syncope, head ache, dizziness, GI bleed, back pain, seizure, CVA, palpatations, mental health)? @ -Hypertensive urgency, hypertensive emergency, myocardial infarction, EKG interpreted by me (3pts min.). @ -As above X-rays interpreted by me (1pt min.). @ -Yes, chest x-ray shows some mild underlying post covid scarring. Heart is upper limits of normal size otherwise no definite acute process CT interpreted by me (1pt min.). @ -None done U/S interpreted by me (1pt. min.). @ -None done What testing was considered but not performed or refused? (CT, X-rays, U/S, labs)? Why? @ -None What meds were considered but not given or refused? Why? @ -None Did you discuss the management of the patient with other professionals (professionals i.e. ELDER Alexandra, ROBOTICS TECHNOLOGIST, lab, RT, psych nurse, social media developer, warp drawer, teacher, classifications officer cc/cm, rn field case manager)? Give summary @ -No Was smoking cessation discussed for >3mins.? @ -No Was critical care preformed (if so, how long)? @ -No Were there social determinants of health that impacted care today? How? (Homelessness, low income, unemployed, alcoholism, drug addiction, transportation, low edu. Level, literacy, decrease access to med. care, skilled nursing, rehab)? @ -No Was there de-escalation of care discussed even if they declined (Discuss DNR or withdrawal of care, Hospice)? DNR status @ -No What co-morbidities impacted this encounter? (DM, HTN, Smoking, COPD, CAD, Cancer, CVA, ARF, Chemo, Hep., AIDS, mental health diagnosis, sleep apnea, morbid obesity)? @ -None Was patient admitted / discharged? Hospital course, mention meds given and route, prescriptions, significant lab abnormalities, going to OR and other pertinent info. @ -Patient presented for evaluation of high blood pressure. Blood pressure is 150/73. Patient educated and reassured. He has appointment at his primary care provider's office on December 03. He will continue to monitor his blood pressu re. Return parameters discussed. Undiagnosed new problem with uncertain prognosis? @ -No Drug Therapy requiring intensive monitoring for toxicity (Heparin, Nitro, Insulin, Cardizem)? @ -No Were any procedures done? @ -No Diagnosis/symptom? @ -high blood pressure Acute, or Chronic, or Acute on Chronic? @ -acute Uncomplicated (without systemic symptoms) or Complicated (systemic symptoms)? @ -uncomplicated Side effects of treatment? @ -No Exacerbation, Progression, or Severe Exacerbation? @ -No Poses a threat to life or bodily function? How? (Chest pain, USA, CT, pneumonia, PE, COPD, DKA, ARF, appy, cholecystitis, CVA, Diverticulitis, Homicidal, Suicidal, threat to staff... and all critical care pts) @ -No] Dr. Black is my attending - Lab Data Result diagrams: 11/21/22 12:10 11/21/22 12:42 Lab Results 11/21/22 11/21/22 11/21/22 Range/Units 12:10 12:10 12:42 WBC 11.5 H (3.8-10.6) k/uL RBC 5.71 (4.30-5.90) m/uL Hgb 17.4 (13.0-17.5) gm/dL Hct 52.4 (39.0-53.0) % MCV 91.7 (80.0-100.0) fL MCH 30.5 (25.0-35.0) pg MCHC 33.2 (31.0-37.0) g/dL RDW 13.8 (11.5-15.5) % Plt Count 173 (150-450) k/uL MPV 7.7 Neutrophils % 67 % Lymphocytes % 18 % Monocytes % 5 % Eosinophils % 8 % Basophils % 1 % Neutrophils # 7.6 (1.3-7.7) k/uL Lymphocytes # 2.0 (1.0-4.8) k/uL Monocytes # 0.6 (0-1.0) k/uL Eosinophils # 1.0 H (0-0.7) k/uL Basophils # 0.1 (0-0.2) k/uL Sodium 139 (137-145) mmol/L Potassium 4.6 (3.5-5.1) mmol/L Chloride 105 (98-107) mmol/L Carbon Dioxide 27 (22-30) mmol/L Anion Gap 7 mmol/L BUN 20 (9-20) mg/dL Creatinine 0.79 (0.66-1.25) mg/dL Est GFR (CKD-EPI)AfAm >90 (>60 ml/min/1.73 sqM) Est GFR (CKD-EPI)NonAf >90 (>60 ml/min/1.73 sqM) Glucose 85 (74-99) mg/dL Calcium 9.0 (8.4-10.2) mg/dL Total Bilirubin 0.6 (0.2-1.3) mg/dL AST 26 (17-59) U/L ALT 53 H (4-49) U/L Alkaline Phosphatase 74 (38-126) U/L Total Protein 7.1 (6.3-8.2) g/dL Albumin 4.1 (3.5-5.0) g/dL Urine Color Yellow Urine Appearance Clear (Clear) Urine pH 6.0 (5.0-8.0) Ur Specific [place] 1.018 (1.001-1.035) Urine Protein Negative (Negative) Urine Glucose (UA) Negative (Negative) Urine Ketones Negative (Negative) Urine Blood Negative (Negative) Urine Nitrite Negative (Negative) Urine Bilirubin Negative (Negative) Urine Urobilinogen <2.0 (<2.0) mg/dL Ur Leukocyte Esterase Negative (Negative) Disposition Clinical Impression: High blood pressure Disposition: HOME SELF-CARE Condition: Good Instructions (If sedation given, give patient instructions): Chronic Hypertension (ED) Additional Instructions: Continue checking blood pressure at home. Follow-up with primary care provider as planned. Return to the emergency department if you experience new, concerning, or worsening symptoms. Is patient prescribed a controlled substance at d/c from ED?: No Referrals: Jose C Flaherty Jr, [Primary Care Provider] - 1-2 days
[2022-11-21 12:21] LABS: Basophils # (A) 0.1 k/uL (0-0.2); Basophils % (A) 1 %; Eosinophils % (A) 8 %; HCT 52.4 % (39.0-53.0); HGB 17.4 gm/dL (13.0-17.5); Lymphocytes % (A) 18 %; MCH 30.5 pg (25.0-35.0); MCHC 33.2 g/dL (31.0-37.0); MCV 91.7 fL (80.0-100.0); Mean Platelet Volume 7.7; Monocytes # (A) 0.6 k/uL (0-1.0); Monocytes % (A) 5 %; Neutrophils # (A) 7.6 k/uL (1.3-7.7); Neutrophils % (A) 67 %; Platelet Count 173 k/uL (150-450); RBC 5.71 m/uL (4.30-5.90); RDW 13.8 % (11.5-15.5); WBC 11.5 k/uL (3.8-10.6)
[2022-11-21 12:25] LABS: Appearance,Urine Clear (Clear); Bilirubin,Urine Negative (Negative); Blood,Urine Negative (Negative); Color,Urine Yellow; Glucose,Urine (UA) Negative (Negative); Ketones,Urine Negative (Negative); Leukocyte Esterase,Urine Negative (Negative); Nitrite,Urine Negative (Negative); Protein,Urine Negative (Negative); Specific Gravity,Urine 1.018 (1.001-1.035); Urobilinogen,Urine <2.0 mg/dL (<2.0)
[2022-11-21 13:15] LABS: ALT 53 U/L (4-49); AST 26 U/L (17-59); African American GFR (CKD) >90 (>60 ml/min/1.73 sqM); Albumin 4.1 g/dL (3.5-5.0); Alkaline Phosphatase 74 U/L (38-126); Anion Gap 7 mmol/L; Blood Urea Nitrogen 20 mg/dL (9-20); Carbon Dioxide 27 mmol/L (22-30); Chloride 105 mmol/L (98-107); Glucose 85 mg/dL (74-99); Non-African American GFR(CKD) >90 (>60 ml/min/1.73 sqM); Potassium 4.6 mmol/L (3.5-5.1); Sodium 139 mmol/L (137-145); Total Bilirubin 0.6 mg/dL (0.2-1.3); Total Protein 7.1 g/dL (6.3-8.2)
[2022-11-21 13:37] VITALS: BP 138/81; PULSE 56; RESP 16; TEMP 98.6
== END 2022-11-21 13:45 | disposition home or self-care (01) ==
LOC: EC 10:49
DX: I10 Essential (primary) hypertension (principal); Z86.16 Personal history of COVID-19
CPT/HCPCS: 36415; 71046; 80053; 81003; 85025; 93005; 99284

== ENCOUNTER → 2022-12-11 | Outpatient (CLI) | payer BC ==
[2022-12-11 20:42] LABS: Chol/HDL Ratio 3.23 Ratio; VLDL Calculation 17.16 mg/dL (5.00-40.00)
== END | disposition home or self-care (01) ==
LOC: LABWHC1 13:43
PROVIDERS: ATTEND Family Medicine
DX: I10 Essential (primary) hypertension (principal); R39.11 Hesitancy of micturition; Z00.00 Encounter for general adult medical examination without abnormal findings
CPT/HCPCS: 80061; 84443; 36415; G0103

== ENCOUNTER 2024-11-15 13:01 | Observation (INO) | payer BC, OTHER ==
--- NOTE | 2024-11-15 13:49 | ED ---
General Adult HPI - General Chief complaint: Chest Pain Stated complaint: chest pain Time Seen by Provider: 11/15/24 13:02 Source: patient, contract preparer Mode of arrival: EMS Limitations: no limitations - History of Present Illness Initial comments: Dictation was produced using [employer] dictation software. please excuse any grammatical, word or spelling errors. Chief Complaint: 64-year-old male presents from primary care physician's office for chest pain and perhaps abnormal imaging studies performed yesterday History of Present Illness: Patient 64-year-old male history of hypertension. His occupation as a industrial truck operator. He went to see his primary care doctor today for concerns about some dizziness for the last 3 months after being started on losartan. He was evaluated by Dr. Flaherty and mentions daily chest tightness along with intermittent episodes of left monocular superior hemianopsia. Currently sent patient to the emergency department for further evaluation of chest pain and visual disturbance. He was seen in the office [address] Koroma who ordered CT of the brain along with echocardiogram. He had these imaging studies performed yesterday. He does not know what the results are. Patient otherwise feels at baseline currently. The ROS documented in this emergency department record has been reviewed and confirmed by me. Those systems with pertinent positive or negative responses have been documented in the HPI. All other systems are other negative and/or noncontributory. - Related Data Home Medications Medication Instructions Recorded Confirmed Losartan [Cozaar] 25 mg PO HS 11/15/24 11/15/24 Allergies Allergy/AdvReac Type Severity Reaction Status Date / Time No Known Allergies Allergy Verified 11/15/24 15:46 Review of Systems ROS Statement: Those systems with pertinent positive or pertinent negative responses have been documented in the HPI. ROS Other: All systems not noted in ROS Statement are negative. Past Medical History Past Medical History: Hypertension Additional Past Medical History / Comment(s): Neck pain, covid History of Any Multi-Drug Resistant Organisms: None Reported Past Surgical History: Hernia Repair Past Anesthesia/Blood Transfusion Reactions: No Reported Reaction Past Psychological History: No Psychological Hx Reported, Anxiety Smoking Status: Former smoker Past Alcohol Use History: Occasional Past Drug Use History: None Reported General Exam - General Exam Comments Initial Comments: PHYSICAL EXAM: General Impression: Alert and oriented x3, not in acute distress HEENT: Normocephalic atraumatic, extra-ocular movements intact, pupils equal and reactive to light bilaterally, mucous membranes moist. Cardiovascular: Heart regular rate and rhythm Chest: Able to complete full sentences, no retractions, no tachypnea Abdomen: abdomen soft, non-tender, non-distended, no organomegaly Musculoskeletal: Pulses present and equal in all extremities, no peripheral edema Motor: no focal deficits noted Neurological: CN II-XII grossly intact, no focal motor or sensory deficits noted Skin: Intact with no visualized rashes Psych: Normal affect and mood Limitations: no limitations Course Vital Signs 11/15/24 11/15/24 13:05 14:06 Temperature 97.6 F Pulse Rate 57 L 62 Respiratory 18 18 Rate Blood Pressure 176/95 134/73 O2 Sat by Pulse 97 98 Oximetry EKG Findings - EKG Comments: EKG Findings:: My EKG interpretation: Ventricular rate 63, sinus rhythm,. 148, QRS 95, QTc 391. No SC prolongation, no QTC prolongation, no ST or T-wave changes noted. Multiple PVCs. Overall this EKG is nonspecific Medical Decision Making - Medical Decision Making Was pt. sent in by a medical professional or institution (, PA, EXCAVATOR OPERATOR, urgent care, hospital, or shelter...) When possible be specific @ -Sent from PCP office Did you speak to anyone other than the patient for history (EMS, parent, family, police, friend...)? What history was obtained from this source @ -No Did you review nursing and triage notes (agree or disagree)? Why? @ -I reviewed and agree with nursing and triage notes Were old charts reviewed (outside hosp., previous admission, EMS record, old EKG, old radiological studies, urgent care reports/EKG's, shelter records)? Report findings @ -No old charts were reviewed Differential Diagnosis (chest pain, altered mental status, abdominal pain women, abdominal pain men, vaginal bleeding, musculoskeletal, weakness, fever, dyspnea, syncope, headache, dizziness, GI bleed, back pain, seizure, CVA, palpatations, mental health)? @ -Differential Chest Pain: Stable Angina, Unstable Angina, STEMI, NSTEMI Aortic Dissection, Pneumothorax, Musculoskeletal, Esophageal Spasm GERD, Cholecystitis, Pancreatitis, Zoster, this is not meant to be an all-inclusive list. EKG interpreted by me (3pts min.). @ -See above X-rays interpreted by me (1pt min.). @ - CT interpreted by me (1pt min.). @ -None done U/S interpreted by me (1pt. min.). @ -None done What testing was considered but not performed or refused? (CT, X-rays, U/S, labs)? Why? @ -None What meds were considered but not given or refused? Why? @ -None Was smoking cessation discussed for >3mins.? @ -No Were there social determinants of health that impacted care today? How? (Homelessness, low income, unemployed, alcoholism, drug addiction, transportation, low edu. Level, literacy, decrease access to med. care, group home, rehab)? @ -No Was there de-escalation of care discussed even if they declined (Discuss DNR or withdrawal of care, Hospice)? DNR status @ -No What co-morbidities impacted this encounter? (DM, HTN, Smoking, COPD, CAD, Cancer, CVA, ARF, Chemo, Hep., AIDS, mental health diagnosis, sleep apnea, morbid obesity)? @ -None Was patient admitted / discharged? Hospital course, mention meds given and route, prescriptions, significant lab abnormalities, going to OR and other pertinent info. @ -64-year-old male sent to the emergency department for chest pain. Patient has been having daily symptoms of chest pain for the last several weeks. Vital signs upon arrival are stable. EKG is nonacute nonischemic. Labs are unremarkable. Patient be admitted observation consultation cardiology. Case discussed with hospitalist for admission Did you discuss the management of the patient with other professionals (professionals i.e. , PA, EXCAVATOR OPERATOR, lab, RT, psych nurse, social services specialist, window draper, teacher, personnel training officer, case investigator)? Give summary @ -See above Was critical care preformed (if so, how long)? @ -No Undiagnosed new problem with uncertain prognosis? @ -No Drug Therapy requiring intensive monitoring for toxicity (Heparin, Nitro, Insulin, Cardizem)? @ -No Were any procedures done? @ -No Diagnosis/symptom? Acute, or Chronic, or Acute on Chronic? Uncomplicated (without systemic symptoms) or Complicated (systemic symptoms)? @ -Chest pain Side effects of treatment? @ -No Exacerbation, Progression, or Severe Exacerbation? @ -No Poses a threat to life or bodily function? How? (Chest pain, [place], [place], pneumonia, PE, COPD, DKA, ARF, appy, cholecystitis, CVA, Diverticulitis, Homicidal, Suicidal, threat to staff... and all critical care pts) @ -Yes - Lab Data Result diagrams: 11/15/24 13:11 11/15/24 13:11 Lab Results 11/15/24 11/15/24 11/15/24 Range/Units 13:11 13:11 13:11 WBC 12.2 H (3.8-10.6) k/uL RBC 5.82 (4.30-5.90) m/uL Hgb 17.1 (13.0-17.5) gm/dL Hct 53.3 H (39.0-53.0) % MCV 91.5 (80.0-100.0) fL MCH 29.4 (25.0-35.0) pg MCHC 32.2 (31.0-37.0) g/dL RDW 13.7 (11.5-15.5) % Plt Count 185 (150-450) k/uL MPV 7.8 Neutrophils % 66 % Lymphocytes % 19 % Monocytes % 5 % Eosinophils % 8 % Basophils % 1 % Neutrophils # 8.1 H (1.3-7.7) k/uL Lymphocytes # 2.3 (1.0-4.8) k/uL Monocytes # 0.6 (0-1.0) k/uL Eosinophils # 1.0 H (0-0.7) k/uL Basophils # 0.1 (0-0.2) k/uL PT 12.0 (10.0-12.5) sec INR 1.1 (<1.2) APTT 24.6 (22.0-30.0) sec Sodium 138 (137-145) mmol/L Potassium 4.4 (3.5-5.1) mmol/L Chloride 106 (98-107) mmol/L Carbon Dioxide 22 (22-30) mmol/L Anion Gap 10 mmol/L BUN 14 (9-20) mg/dL Creatinine 0.75 (0.66-1.25) mg/dL Est GFR (CKD-EPI)AfAm >90 (>60 ml/min/1.73 sqM) Est GFR (CKD-EPI)NonAf >90 (>60 ml/min/1.73 sqM) Glucose 80 (74-99) mg/dL Calcium 9.2 (8.4-10.2) mg/dL Total Bilirubin 0.9 (0.2-1.3) mg/dL AST 25 (17-59) U/L ALT 46 (4-49) U/L Alkaline Phosphatase 76 (38-126) U/L Troponin I (0.000-0.034) ng/mL Total Protein 7.5 (6.3-8.2) g/dL Albumin 4.5 (3.5-5.0) g/dL Blood Type Recheck Bld Type Recheck Status Spec Expiration Date 11/15/24 11/15/24 Range/Units 13:11 14:50 WBC (3.8-10.6) k/uL RBC (4.30-5.90) m/uL Hgb (13.0-17.5) gm/dL Hct (39.0-53.0) % MCV (80.0-100.0) fL MCH (25.0-35.0) pg MCHC (31.0-37.0) g/dL RDW (11.5-15.5) % Plt Count (150-450) k/uL MPV Neutrophils % % Lymphocytes % % Monocytes % % Eosinophils % % Basophils % % Neutrophils # (1.3-7.7) k/uL Lymphocytes # (1.0-4.8) k/uL Monocytes # (0-1.0) k/uL Eosinophils # (0-0.7) k/uL Basophils # (0-0.2) k/uL PT (10.0-12.5) sec INR (<1.2) APTT (22.0-30.0) sec Sodium (137-145) mmol/L Potassium (3.5-5.1) mmol/L Chloride (98-107) mmol/L Carbon Dioxide (22-30) mmol/L Anion Gap mmol/L BUN (9-20) mg/dL Creatinine (0.66-1.25) mg/dL Est GFR (CKD-EPI)AfAm (>60 ml/min/1.73 sqM) Est GFR (CKD-EPI)NonAf (>60 ml/min/1.73 sqM) Glucose (74-99) mg/dL Calcium (8.4-10.2) mg/dL Total Bilirubin (0.2-1.3) mg/dL AST (17-59) U/L ALT (4-49) U/L Alkaline Phosphatase (38-126) U/L Troponin I <0.012 (0.000-0.034) ng/mL Total Protein (6.3-8.2) g/dL Albumin (3.5-5.0) g/dL Blood Type Recheck No Previous Record Bld Type Recheck Status CABO Indicated Spec Expiration Date 11/18/20242349 Disposition Clinical Impression: Chest pain Disposition: ADMITTED IP TO THIS [facility] Condition: Fair Referrals: Jose C Flaherty Jr, [Primary Care Provider] - 1-2 days Decision Time: 15:50
[2024-11-15 13:57] LABS: ALT 46 U/L (4-49); AST 25 U/L (17-59); African American GFR (CKD) >90 (>60 ml/min/1.73 sqM); Albumin 4.5 g/dL (3.5-5.0); Alkaline Phosphatase 76 U/L (38-126); Anion Gap 10 mmol/L; Blood Urea Nitrogen 14 mg/dL (9-20); Calcium 9.2 mg/dL (8.4-10.2); Carbon Dioxide 22 mmol/L (22-30); Chloride 106 mmol/L (98-107); Glucose 80 mg/dL (74-99); Non-African American GFR(CKD) >90 (>60 ml/min/1.73 sqM); Potassium 4.4 mmol/L (3.5-5.1); Sodium 138 mmol/L (137-145); Total Bilirubin 0.9 mg/dL (0.2-1.3); Total Protein 7.5 g/dL (6.3-8.2)
[2024-11-15 14:02] LABS: INR 1.1 (<1.2); Partial Thromboplastin Time 24.6 sec (22.0-30.0)
[2024-11-15 14:07] LABS: Basophils # (A) 0.1 k/uL (0-0.2); Basophils % (A) 1 %; Eosinophils % (A) 8 %; HCT 53.3 % (39.0-53.0); HGB 17.1 gm/dL (13.0-17.5); Lymphocytes # (A) 2.3 k/uL (1.0-4.8); Lymphocytes % (A) 19 %; MCH 29.4 pg (25.0-35.0); MCHC 32.2 g/dL (31.0-37.0); MCV 91.5 fL (80.0-100.0); Mean Platelet Volume 7.8; Monocytes # (A) 0.6 k/uL (0-1.0); Monocytes % (A) 5 %; Neutrophils # (A) 8.1 k/uL (1.3-7.7); Neutrophils % (A) 66 %; Platelet Count 185 k/uL (150-450); RBC 5.82 m/uL (4.30-5.90); RDW 13.7 % (11.5-15.5); WBC 12.2 k/uL (3.8-10.6)
[2024-11-15] MEDS ORDERED: NITROGLYCERIN SL TABS 0.4 MG TAB SUBLINGUAL PRN (15:46)
[2024-11-15] MEDS: ASPIRIN 81 MG PO STA (16:04)
--- NOTE | 2024-11-15 16:04 | XR ---
EXAMINATION TYPE: XR chest 2V DATE OF EXAM: 11/15/2024 4:00 PM COMPARISON: Chest radiographs from 11/21/2022 CLINICAL INDICATION: Male, 64 years old with history of chest pain; TECHNIQUE: XR chest 2V Frontal and lateral views of the chest. FINDINGS: Lungs/Pleura: There is flattening of the diaphragm with increased lucency of the lungs. No evidence o f pneumothorax, pleural effusion or focal consolidation. Pulmonary vascularity: Unremarkable. Heart/mediastinum: Cardiomediastinal silhouette is unremarkable. Musculoskeletal: No acute osseous pathology. IMPRESSION: No acute cardiopulmonary disease/process. [facility], , 11/15/2024 4:02 PM
[2024-11-16 07:52] VITALS: RESP 16
[2024-11-16 08:46] LABS: Chol/HDL Ratio 3.85 Ratio; LDL Cholesterol,Calculated 77.8 mg/dL (0.0-131.0)
[2024-11-16] MEDS: ASPIRIN 81 MG PO SCH (08:55)
[2024-11-16] MEDS ORDERED: ASPIRIN 325 MG TAB PO SCH (09:00)
--- NOTE | 2024-11-16 10:51 | P.CRDCN ---
History of Present Illness History of present illness: HISTORY OF PRESENT ILLNESS: This is a 64-year-old male with a past medical history significant for hypertension and former nicotine dependence. Patient does not follow with a bit sander. We have been asked to see the patient in consultation for chest pain. Patient examined at the bedside. Patient presented to the hospital with a chief complaint of chest discomfort. Patient was seen at his primary care doctor yesterday and was directed to come to the emergency room. Patient states he had COVID about 2 years ago and since that time he has been having ongoing issues with shortness of breath, chest tightness, and his heart pounding. He reports that he has " lung tightness" since having COVID. He states that the symptoms are not exertionally related and usually improve with exercise. Patient states that he is short of breath with exertion initially but then it usually improves. He reports having some mild pounding in his chest and states he sometimes gets vision changes when he feels like his heart is pounding. He does have a history of hypertension. He denies any known history of hyperlipidemia or diabetes. He states that he quit smoking 10 years ago. DIAGNOSTICS: - EKG reveals sinus mechanism with PVCs in a bigeminal pattern. No signs of acute ischemia. - Chest xray negative for acute process - Laboratory data: WBC 12.2. Hemoglobin 17.1. Platelet count 185. Sodium 138. Potassium 4.4. BUN 14. Creatinine 0.75. Troponin negative x 3. - Current home cardiac medications include losartan 25 mg at night. -Patient had an echocardiogram performed at [facility] this month revealing ejection fraction 55%, no obvious regional wall motion abnormalities, normal RV size and systolic function, mild MR, mild TR, RVSP within normal limits. - Cardiac catheterization history: Patient denies REVIEW OF SYSTEMS: At the time of my exam: CONSTITUTIONAL: Denies fever or chills. HEENT: Denies blurred vision, vision changes, or eye pain. Denies hemoptysis CARDIOVASCULAR: Denies chest pain. Denies orthopnea. Denies PND. Denies palpitations RESPIRATORY: Denies shortness of breath. GASTROINTESTINAL: Denies abdominal pain. Denies nausea or vomiting. HEMATOLOGIC: Denies bleeding disorders. GENITOURINARY: Denies any blood in urine. SKIN: Denies pruitis. Denies rash. PHYSICAL EXAM: VITAL SIGNS: Reviewed. GENERAL: Well-developed in no acute distress. HEENT: Head is normocephalic. Pupils are equal, round. Sclerae anicteric. Mucous membranes of the mouth are moist. Neck supple. No JVD or thyromegaly LUNGS: Respirations even and unlabored. Lungs essentially clear to auscultation bilaterally. HEART: Regular rate and rhythm. S1 and S2 heard. ABDOMEN: Soft. Nondistended. Nontender. EXTREMITIES: Normal range of motion. No clubbing or cyanosis. Peripheral pulses intact. No lower extremity edema NEUROLOGIC: Awake and alert. Oriented x 3. ASSESSMENT: Chest pain/tightness, x 2 years, troponin negative x 3 Bigeminy Hypertension Former nicotine dependence, patient quit smoking 10 years ago Obesity: BMI 32.0 PLAN: An acute coronary event has been ruled out No need to repeat echocardiogram as this was recently performed at [facility] Resume home cardiac medications Decrease aspirin to 81 mg daily Patient to undergo stress echocardiogram today If negative, patient may be discharged home from a cardiac standpoint Nurse practitioner note has been reviewed by physician. Signing provider agrees with the documented findings, assessment, and plan of care documented by OFFICE SUPPORT ASSISTANT as a scribe. Past Medical History Past Medical History: Hypertension Additional Past Medical History / Comment(s): Neck pain, covid History of Any Multi-Drug Resistant Organisms: None Reported Past Surgical History: Hernia Repair Past Anesthesia/Blood Transfusion Reactions: No Reported Reaction Past Psychological History: No Psychological Hx Reported, Anxiety Smoking Status: Former smoker Past Alcohol Use History: Occasional Past Drug Use History: None Reported Medications and Allergies Home Medications Medication Instructions Recorded Confirmed Type Losartan [Cozaar] 25 mg PO HS 11/15/24 11/15/24 History Allergies Allergy/AdvReac Type Severity Reaction Status Date / Time No Known Allergies Allergy Verified 11/15/24 15:46 Physical Exam Vitals: Vital Signs Temp Pulse Pulse Resp BP BP Pulse Ox 11/16/24 02:00 97.3 F L 54 L 15 115/71 94 L 11/15/24 20:00 98.6 F 62 15 132/71 98 11/15/24 17:35 97.6 F 57 L 16 157/84 95 11/15/24 16:48 97.7 F 67 16 130/93 99 11/15/24 16:04 55 L 16 119/71 97 11/15/24 14:06 62 18 134/73 98 11/15/24 13:05 97.6 F 57 L 18 176/95 97 Intake and Output 11/15/24 11/16/24 11/16/24 22:59 06:59 14:59 Intake Total 480 Balance 480 Intake: Oral 480 Other: Voiding Method Toilet Toilet # Voids 1 2 Weight 87.09 kg Results 11/15/24 13:11 11/15/24 13:11 Cardiac Enzymes 11/15/24 11/15/24 11/15/24 Range/Units 13:11 13:11 16:07 AST 25 (17-59) U/L Troponin I <0.012 <0.012 (0.000-0.034) ng/mL 11/15/24 Range/Units 19:45 AST (17-59) U/L Troponin I <0.012 (0.000-0.034) ng/mL Coagulation 11/15/24 Range/Units 13:11 PT 12.0 (10.0-12.5) sec APTT 24.6 (22.0-30.0) sec CBC 11/15/24 Range/Units 13:11 WBC 12.2 H (3.8-10.6) k/uL RBC 5.82 (4.30-5.90) m/uL Hgb 17.1 (13.0-17.5) gm/dL Hct 53.3 H (39.0-53.0) % Plt Count 185 (150-450) k/uL Comprehensive Metabolic Panel 11/15/24 Range/Units 13:11 Sodium 138 (137-145) mmol/L Potassium 4.4 (3.5-5.1) mmol/L Chloride 106 (98-107) mmol/L Carbon Dioxide 22 (22-30) mmol/L BUN 14 (9-20) mg/dL Creatinine 0.75 (0.66-1.25) mg/dL Glucose 80 (74-99) mg/dL Calcium 9.2 (8.4-10.2) mg/dL AST 25 (17-59) U/L ALT 46 (4-49) U/L Alkaline Phosphatase 76 (38-126) U/L Total Protein 7.5 (6.3-8.2) g/dL Albumin 4.5 (3.5-5.0) g/dL Current Medications Generic Name Dose Route Start Last Admin Trade Name Freq PRN Reason Stop Dose Admin Aspirin 325 mg 11/16/24 09:00 Aspirin 325 Mg Tab PO DAILY POPPY Nitroglycerin 0.4 mg 11/15/24 15:46 Nitroglycerin Sl Tabs 0.4 Mg Tab SUBLINGUAL Q5M PRN Chest Pain Intake and Output 11/15/24 11/16/24 11/16/24 22:59 06:59 14:59 Intake Total 480 Balance 480 Intake: Oral 480 Other: Voiding Method Toilet Toilet # Voids 1 2 Weight 87.09 kg 11/15/24 13:11 11/15/24 13:11
--- NOTE | 2024-11-16 11:12 | P.HPIM ---
History of Present Illness H&P Date: 11/16/24 Chief Complaint: Chest pain Audie is a 64-year-old male well-known to the practice. He has been experiencing chest pressure since he had COVID several years ago. He reports it happens when he exerts himself. He also reports when he is working he feels the tightness in his chest. He attributed this to long tightness before. He does have a history of PVCs. While in the office he indicated the chest pressure might becoming more frequent. He was sent over via EMS for workup from the office. He is resting comfortably now. He has had serial troponins that have been negative. ER EKG showed sinus rhythm with frequent PVCs. Overnight he has remained afebrile, vitals are stable, blood pressure controlled. Labs show an LDL of 77.8. He has a slight white count with left shift at 12.2. Chest x-ray shows no acute process. He is pain-free. Cardiology consult is pending. Review of Systems All systems: negative Past Medical History Past Medical History: Hypertension Additional Past Medical History / Comment(s): Neck pain, covid History of Any Multi-Drug Resistant Organisms: None Reported Past Surgical History: Hernia Repair Past Anesthesia/Blood Transfusion Reactions: No Reported Reaction Past Psychological History: No Psychological Hx Reported, Anxiety Smoking Status: Former smoker Past Alcohol Use History: Occasional Past Drug Use History: None Reported Medications and Allergies Home Medications Medication Instructions Recorded Confirmed Type Losartan [Cozaar] 25 mg PO HS 11/15/24 11/15/24 History Allergies Allergy/AdvReac Type Severity Reaction Status Date / Time No Known Allergies Allergy Verified 11/15/24 15:46 Physical Exam Vitals: Vital Signs Temp Pulse Pulse Resp BP BP Pulse Ox 11/16/24 07:00 97.5 F L 47 L 16 135/66 96 11/16/24 02:00 97.3 F L 54 L 15 115/71 94 L 11/15/24 20:00 98.6 F 62 15 132/71 98 11/15/24 17:35 97.6 F 57 L 16 157/84 95 11/15/24 16:48 97.7 F 67 16 130/93 99 11/15/24 16:04 55 L 16 119/71 97 11/15/24 14:06 62 18 134/73 98 11/15/24 13:05 97.6 F 57 L 18 176/95 97 Intake and Output 11/15/24 11/16/24 11/16/24 22:59 06:59 14:59 Intake Total 480 Balance 480 Intake: Oral 480 Other: Voiding Method Toilet Toilet # Voids 1 2 Weight 87.09 kg GENERAL: Well-appearing, well-nourished and in no acute distress. HEAD: Atraumatic, normocephalic. EYES: Pupils equal round and reactive to light, extraocular movements intact, sclera anicteric, conjunctiva are normal. ENT:nares patent, oropharynx clear without exudates. Moist mucous membranes. NECK: Normal range of motion, supple without lymphadenopathy or JVD, no thyromegaly LUNGS: Breath sounds clear to auscultation bilaterally and equal. No wheezes rales or rhonchi. HEART: Regular rate and rhythm without murmurs, rubs or gallops.S1S2 Normal ABDOMEN: Soft, nontender, normoactive bowel sounds. No guarding, no rebound. No masses appreciated. EXTREMITIES: Normal range of motion, no pitting or edema. No clubbing or cyanosis. NEUROLOGICAL: Cranial nerves II through XII grossly intact. Normal speech, normal gait. PSYCH: Normal mood, normal affect. SKIN: Warm, Dry, normal turgor, no rashes or lesions noted. Results CBC & Chem 7: 11/15/24 13:11 11/15/24 13:11 Labs: Abnormal Lab Results - Last 24 Hours (Table) 11/15/24 11/15/24 Range/Units 13:11 13:11 WBC 12.2 H (3.8-10.6) k/uL Hct 53.3 H (39.0-53.0) % Neutrophils # 8.1 H (1.3-7.7) k/uL Eosinophils # 1.0 H (0-0.7) k/uL HDL Cholesterol 36.60 L (40.00-60.00) mg/dL Chest x-ray: report reviewed Thrombosis Risk Factor Assmnt - DVT/VTE Prophylaxis DVT/VTE Prophylaxis: Mechanical Prophylaxis ordered - Choose All That Apply Each Factor Represents 1 point: Age 41-60 years Other Risk Factors: Yes Each Risk Factor Represents 2 Points: Age 61-74 years Thrombosis Risk Factor Assessment Total Risk Factor Score: 3 Thrombosis Risk Factor Assessment Level: Moderate Risk Assessment and Plan (1) Essential (primary) hypertension Current Visit: Yes Status: Acute Code(s): I10 - ESSENTIAL (PRIMARY) HYPERTENSION SNOMED Code(s): 26458028 (2) Frequent PVCs Current Visit: Yes Status: Acute Code(s): I49.3 - VENTRICULAR PREMATURE DEPOLARIZATION SNOMED Code(s): 428071392 (3) Chest pain Current Visit: Yes Status: Acute Code(s): R07.9 - CHEST PAIN, UNSPECIFIED SNOMED Code(s): 38205091 Plan: Wait on an upcoming cardiac stress test. Wait on cardiology consultation. He had had a normal 2D echo at [facility] just several days ago. He is cleared by cardiology and testing is negative he can be discharged home later today. Will wait on the recommendations. Repeat CBC.
[2024-11-16 11:45] LABS: Basophils # (A) 0.1 k/uL (0-0.2); Basophils % (A) 1 %; Eosinophils % (A) 9 %; HGB 18.3 gm/dL (13.0-17.5); Lymphocytes % (A) 18 %; MCHC 32.3 g/dL (31.0-37.0); MCV 92.8 fL (80.0-100.0); Mean Platelet Volume 7.8; Monocytes # (A) 0.4 k/uL (0-1.0); Monocytes % (A) 3 %; Neutrophils # (A) 7.5 k/uL (1.3-7.7); Neutrophils % (A) 67 %; Platelet Count 165 k/uL (150-450); RDW 14.1 % (11.5-15.5); WBC 11.1 k/uL (3.8-10.6)
[2024-11-16 11:47] LABS: HCT 56.6 % (39.0-53.0)
[2024-11-16 13:59] VITALS: BP 138/72; PULSE 60; TEMP 98
--- NOTE | 2024-11-16 18:06 | CA ---
Stress Echo Report Jae Leiva Age: 64 Gender: M : 1960 Exam Date: 11/16/2024 09:50 Exam Location: [place] [facility] Ht (in): 65 Wt (lb): 192 Ordering Physician: Linda Carney Referring Physician: [id number] Fiberglass Machine Operator: MILLY Technologist Procedure CPT: Indication: CP ICD-9 Codes: Rhythm: Patient History: Cardiac Medications: SEE CHART,,,,, Medications in past 24 hours: Contrast: Definity Stress Results Protocol: Varinder Total dose(mL): 2 Exercise Duration (min:sec): 7:[address] Depression (mm): Angina Score: Hammer Score: METS: 8.9 Resting HR: 76 Resting BP: 176 / 84 Peak HR: 144 Peak BP: 204 / 89 Max Predicted HR: 158 91 % Max Predicted HR Target HR: 134 Double Product: 24212 Stress Summary: The patient's target heart rate was achieved BP Response: Reason for Termination: MAX EXERTION/TARGET HR Cardiac Symptoms: NO SYMPTOMS ECG Analysis Resting ECG: Normal sinus rhythm, Minor resting ST/T wave changes Stress ECG: Exaggeration of the baseline ST abnormality Arrhythmia: Frequent PVCs Echo Analysis Resting Echo: Normal resting echocardiogram. Peak Echo Analysis: Normal wall thickening and motion with decrease in the cavity size MEASUREMENTS (Male/Female) Normal Values CONCLUSIONS 1. Nondiagnostic electrocardiographic stress testing secondary to baseline EKG abnormality with occasional PVCs 2. Normal stress echocardiogram with no evidence of stress- induced ischemia Dr. Lobito Menezes MD (Electronically Signed) Final Date: 16 November 2024 18:05
--- NOTE | 2024-11-16 20:22 | P.DS ---
Providers Date of admission: 11/15/24 15:47 Expected date of discharge: 11/16/24 Attending physician: Vlad Koroma Consults: 11/15/24 15:46 Consult Physician Urgent Consulting Provider: David Johnson Consult Reason/Comments: chest pain Do you want consulting provider notified?: Yes Primary care physician: Jose C Flaherty - Discharge Diagnosis(es) (1) Essential (primary) hypertension Status: Acute (2) Frequent PVCs Status: Acute (3) Chest pain Status: Acute Hospital Course: Patient was admitted for workup for chest pain after experiencing chest tightness that has been ongoing since he had COVID. His workup including serial troponins was negative, the stress echo was nondiagnostic electrodiagnostic stress testing secondary to baseline EKG abnormalities but the stress echo cardiac gram portion showed no stress-induced ischemia evident. Patient had left AGAINST MEDICAL ADVICE before this report was available. This patient will follow-up in the office in the next 1 to 2 weeks. Patient Condition at Discharge: Fair Plan - Discharge Summary New Discharge Prescriptions: Continue Losartan [Cozaar] 25 mg PO HS Discharge Medication List Losartan [Cozaar] 25 mg PO HS 11/15/24 [History] Follow up Appointment(s)/Referral(s): Vlad Koroma MD [STAFF PHYSICIAN] - 1 Week Discharge Disposition: HOME SELF-CARE
[2024-11-16] MEDS ORDERED: LOSARTAN 25 MG TAB PO SCH (21:00)
== END 2024-11-16 18:26 | disposition home or self-care (01) ==
LOC: EC 13:01 → 6NMEDSUR 15:47
PROVIDERS: ADMIT Family Medicine; ATTEND Family Medicine
DX: R07.89 Other chest pain (principal); I10 Essential (primary) hypertension; I49.3 Ventricular premature depolarization; H53.462 Homonymous bilateral field defects, left side; E66.9 Obesity, unspecified; Z68.32 Body mass index [BMI] 32.0-32.9, adult; Z79.899 Other long term (current) drug therapy; Z53.29 Procedure and treatment not carried out because of patient's decision for other reasons; Z86.16 Personal history of COVID-19; Z87.891 Personal history of nicotine dependence
CPT/HCPCS: 99285; 36415; 93005; 93351; 86900; 86901; 80061; 80053; 84484; 85025 ×2; 85610; 85730; 86850; 83036; 71046; G0378 ×2; Q9957